=== PATIENT | female | born 1960 | race Caucasian/White ===

== ENCOUNTER 2023-02-05 16:58 | Emergency (ER) | payer OTHER ==
[2023-02-05 17:38] LABS: ALBUMIN 3.5 GM/DL (3.2-4.5)
[2023-02-05 17:39] LABS: POTASSIUM 3.8 MMOL/L (3.6-5.0)
--- NOTE | 2023-02-05 17:39 | ED General ---
General Chief Complaint: Abdominal/GI Problems Stated Complaint: PARACENTISIS TREATMENT Nursing Triage Note: PT AMB TO RM 5 PT STATES SHE IS IN AREA VISITING AND NEEDS PARACENTISIS. PT IS VISITING FROM [place]. PT STATES LAST TIME DONE APPROX 01/19/23. PT HAS LIVER FAILURE FROM PREVIOUS DRINKING. PT HAS DISTENDED ABD, SOA, PAIN 5/10 Source of Information: Patient Exam Limitations: No Limitations History of Present Illness Date Seen by Provider: Feb 05, 2023 Time Seen by Provider: 17:08 Initial Comments This is 62-year-old woman presents to the emergency room by private vehicle with concerns about worsening abdominal ascites. She has history of liver failure from alcohol use and hepatitis C. The hepatitis C has been treated and she no longer drinks alcohol. She lives at the [facility], [place] area and is visiting her niece who lives in [place]. They tried to arrange paracentesis through a referral but were unable to do so. She normally has paracentesis weekly but has not had a paracentesis since January 19. She reports on her last paracentesis only approximately 1 L was drained. She typically has closer to 10 L drained. She complains of shortness of breath, pain from abdominal distention, and worsening abdominal distention. She rates her pain as 5 or 6 out of 10. She normally uses gabapentin for pain, but that is not currently helping much. She has used oxycodone successfully in the past. She does take diuretics and lactulose routinely. Vital signs are unremarkable at this time. She is not hypoxic and not in respiratory distress. Allergies and Home Medications Allergies Coded Allergies: No Known Drug Allergies (Unverified , 02/05/23) Patient Home Medication List Home Medication List Reviewed: Yes Oxycodone HCl (Oxycodone HCl) 5 Mg Tablet, 5 MG PO Q6H PRN for PAIN-MODERATE TO SEVERE Prescribed by: TESSA SOUTH on 02/05/23 181 Review of Systems Review of Systems Constitutional: no symptoms reported EENTM: no symptoms reported Respiratory: see HPI Cardiovascular: no symptoms reported Gastrointestinal: see HPI Genitourinary: no symptoms reported : No Musculoskeletal: no symptoms reported Skin: no symptoms reported Psychiatric/Neurological: No Symptoms Reported Hematologic/Lymphatic: No Symptoms Reported Immunological/Allergic: no symptoms reported Past [id number]-Jihrqa-Ixblxd Hx Patient Social History Tobacco Use?: Yes Tobacco type used: Cigarettes Smoking Status: Current Everyday Smoker Substance use?: No Alcohol Use?: No (Prior alcohol use but none currently) Pt feels they are or have been: No Past Medical History Surgery/Hospitalization HX: PARACENTISIS, ENDOMETRIOSIS, L TUBE AND L OVARY REMOVED, LIVER FAILURE Surgeries: Yes (Left salpingectomy and oophorectomy) Abdominal (Routine paracentesis) Respiratory: No Cardiac: No Neurological: No : No Reproductive Disorders: Yes Female Reproductive Disorders: Endometriosis Genitourinary: No Gastrointestinal: Yes Liver Disease/Jaundice (Chronic liver failure with ascites related to treated hepatitis C and alcohol use), Hepatitis (History of hepatitis C, treated) Musculoskeletal: No Endocrine: No HEENT: No Cancer: No Psychosocial: No Integumentary: No Physical Exam Vital Signs Vital Signs - First Documented 02/05/23 17:05 Temp 36.6 Pulse 94 Resp 14 B/P (MAP) 127/67 (87) Pulse Ox 97 Capillary Refill : Less Than 3 Seconds Height, Weight, BMI Height: '" Weight: lbs. oz. kg; BMI Method: General Appearance: No Apparent Distress, WD/WN HEENT: PERRL/EOMI, Normal ENT Inspection Neck: Normal Inspection Respiratory: Lungs Clear, Normal Breath Sounds, No Accessory Muscle Use, No Respiratory Distress Cardiovascular: Regular Rate, Rhythm, No Murmur, Other (Mild to moderate lower extremity edema, equal bilaterally) Gastrointestinal: Normal Bowel Sounds, Soft, Distended, Tenderness (Mild, generalized) Extremity: Pedal Edema (Mild to moderate lower extremity edema, equal bilaterally) Neurologic/Psychiatric: Alert, Oriented x3, No Motor/Sensory Deficits, Normal Mood/Affect Skin: Normal Color, Warm/Dry Progress/Results/Core Measures Suspected Sepsis SIRS Temperature: Pulse: 94 Respiratory Rate: 14 Laboratory Tests 02/05/23 17:20: White Blood Count 8.4 Blood Pressure 127 /67 Mean: 87 Laboratory Tests 02/05/23 17:20: Creatinine 1.11, INR Comment 1.2, Platelet Count 130, Total Bilirubin 3.0H Results/Orders Lab Results Laboratory Tests Test 02/05/23 17:20 02/05/23 17:30 Range/Units White Blood Count 8.4 4.3-11.0 10^3/uL Red Blood Count 3.69 L 3.80-5.11 10^6/uL Hemoglobin 12.0 11.5-16.0 g/dL Hematocrit 36 35-52 % Mean Corpuscular Volume 96 80-99 fL Mean Corpuscular Hemoglobin 33 25-34 pg Mean Corpuscular Hemoglobin Concent 34 32-36 g/dL Red Cell Distribution Width 15.9 H 10.0-14.5 % Platelet Count 130 130-400 10^3/uL Mean Platelet Volume 10.0 9.0-12.2 fL Immature Granulocyte % (Auto) 1 % Neutrophils (%) (Auto) 64 42-75 % Lymphocytes (%) (Auto) 19 12-44 % Monocytes (%) (Auto) 12 0-12 % Eosinophils (%) (Auto) 3 0-10 % Basophils (%) (Auto) 1 0-10 % Neutrophils # (Auto) 5.4 1.8-7.8 10^3/uL Lymphocytes # (Auto) 1.6 1.0-4.0 10^3/uL Monocytes # (Auto) 1.0 0.0-1.0 10^3/uL Eosinophils # (Auto) 0.3 0.0-0.3 10^3/uL Basophils # (Auto) 0.1 0.0-0.1 10^3/uL Immature Granulocyte # (Auto) 0.0 0.0-0.1 10^3/uL Percent Immature Platelet Fraction 3.4 0.0-7.6 % Prothrombin Time 15.5 H 12.2-14.7 SEC INR Comment 1.2 0.8-1.4 Activated Partial Thromboplast Time 32 24-35 SEC Sodium Level 136 135-145 MMOL/L Potassium Level 3.8 3.6-5.0 MMOL/L Chloride Level 100 98-107 MMOL/L Carbon Dioxide Level 23 21-32 MMOL/L Anion Gap 13 5-14 MMOL/L Blood Urea Nitrogen 19 H 7-18 MG/DL Creatinine 1.11 0.60-1.30 MG/DL Estimat Glomerular Filtration Rate 56 BUN/Creatinine Ratio 17 Glucose Level 119 H 70-105 MG/DL Calcium Level 9.7 8.5-10.1 MG/DL Corrected Calcium 10.1 8.5-10.1 MG/DL Total Bilirubin 3.0 H 0.1-1.0 MG/DL Aspartate Amino Transf (AST/SGOT) 33 5-34 U/L Alanine Aminotransferase (ALT/SGPT) 19 0-55 U/L Alkaline Phosphatase 127 40-136 U/L Total Protein 6.1 L 6.4-8.2 GM/DL Albumin 3.5 3.2-4.5 GM/DL Urine Color YELLOW Urine Clarity CLEAR Urine pH 5.0 5-9 Urine Specific [place] 1.020 1.016-1.022 Urine Protein NEGATIVE NEGATIVE Urine Glucose (UA) NEGATIVE NEGATIVE Urine Ketones NEGATIVE NEGATIVE Urine Nitrite NEGATIVE NEGATIVE Urine Bilirubin NEGATIVE NEGATIVE Urine Urobilinogen 0.2 < = 1.0 MG/DL Urine Leukocyte Esterase NEGATIVE NEGATIVE Urine RBC (Auto) NEGATIVE NEGATIVE Urine RBC NONE /HPF Urine WBC NONE /HPF Urine Squamous Epithelial Cells 2-5 /HPF Urine Crystals NONE /LPF Urine Bacteria FEW H /HPF Urine Casts NONE /LPF Urine Mucus NEGATIVE /LPF Urine Culture Indicated NO My Orders Orders - TESSA MYERS MD Protime With Inr (02/05/23 17:25) Partial Thromboplastin Time (02/05/23 17:25) Ed Iv/Invasive Line Start (02/05/23 17:25) Oxycodone Immediate Rel Tablet (Oxycodon (02/05/23 17:45) Potassium Chloride (Tablet) (Potassium C (02/05/23 18:15) Medications Given in ED Current Medications Medications Dose Ordered Sig/Meredith Route Start Time Stop Time Status Last Admin Dose Admin Oxycodone HCl 5 mg ONCE ONCE PO 02/05/23 17:45 02/05/23 17:46 DC 02/05/23 18:03 5 MG Vital Signs/I&O 02/05/23 17:05 Temp 36.6 Pulse 94 Resp 14 B/P (MAP) 127/67 (87) Pulse Ox 97 Capillary Refill : Less Than 3 Seconds Blood Pressure Mean: 87 Progress Note : Progress Note Patient was interviewed and examined. Labs were obtained, reviewed, and interpreted by me. CBC was unremarkable with a normal platelets of 130. INR was normal at 1.2. CMP was unremarkable for any clinically relevant abnormalities. Urinalysis was also unremarkable. Patient inquired about what she could do to help her symptoms while awaiting paracentesis. I suggested taking an extra dose of Lasix 40 mg this evening when she returns home. Her potassium was 3.5 today. I provided oral potassium 10 mEq now to accommodate for the extra dose of Lasix when she returns home. I spoke with Dr. Pro, general surgeon on-call, who would like to see her in the clinic at 0900 tomorrow morning to arrange for paracentesis. Patient did not require emergent paracentesis in the emergency room at this time. She is stable for discharge and outpatient paracentesis tomorrow. Patient would like to be sure that her paracentesis is performed before she travels back to [place] on , 08 February. She was provided with a dose of oxycodone 5 mg to help manage the pain and a small quantity of oxycodone was prescribed to help her get through until she returns home. See discharge instructions for further discussion. Departure Impression Primary Impression: Abdominal ascites Qualified Codes: R18.8 - Other ascites Additional Impression: Liver failure Qualified Codes: K72.10 - Chronic hepatic failure without coma Disposition: HOME, SELF-CARE Condition: Stable Departure-Patient Inst. Decision time for Depature: 18:05 Referrals: MARCELO PROLOCAL PHYSICIAN (PCP) Primary Care Physician Patient Instructions: Abdominal Paracentesis, Fluid in the belly (ascites), Liver Failure Diet Add. Discharge Instructions: To help reduce fluid accumulation while you are awaiting paracentesis you may take an extra Lasix (furosemide) 40 mg by mouth tonight. You may use oxycodone as prescribed for pain. Do not drive or operate machinery while on oxycodone as it may cause drowsiness. Present to general surgery office (Dr. Pro's office) at 9:00 tomorrow morning, February 06. Per Dr. Pro's instructions, he will provide you consultation and arrange for paracentesis at the outpatient surgery center. His contact information is below. You may call the office at 8:00 in the morning to confirm the appointment and provide any other information they may require. Return to care if you have any worsening of symptoms despite following these instructions. All discharge instructions reviewed with patient and/or family. Voiced understanding. Scripts Oxycodone HCl (Oxycodone HCl) 5 Mg Tablet 5 MG PO Q6H PRN for PAIN-MODERATE TO SEVERE, #10 TAB Prov: TESSA MYERS MD 02/05/23 Copy Copies To 1: MARCELO PRO JOSHUA T MD Feb 05, 2023 17:39
[2023-02-05 17:40] LABS: CALCIUM 9.7 MG/DL (8.5-10.1)
[2023-02-05 17:41] LABS: TOTAL PROTEIN 6.1 GM/DL (6.4-8.2)
[2023-02-05 17:43] LABS: BASOPHILS # (AUTO) 0.1 10^3/uL (0.0-0.1); BASOPHILS % (AUTO) 1 % (0-10); EOSINOPHILS # (AUTO) 0.3 10^3/uL (0.0-0.3); EOSINOPHILS % (AUTO) 3 % (0-10); HEMATOCRIT 36 % (35-52); LYMPHOCYTES # (AUTO) 1.6 10^3/uL (1.0-4.0); LYMPHOCYTES % (AUTO) 19 % (12-44); MEAN CORPUSCULAR HEMOGLOBIN 33 pg (25-34); MEAN CORPUSCULAR HGB CONC 34 g/dL (32-36); MEAN CORPUSCULAR VOLUME 96 fL (80-99); MONOCYTES % (AUTO) 12 % (0-12); NEUTROPHILS # (AUTO) 5.4 10^3/uL (1.8-7.8); NEUTROPHILS % (AUTO) 64 % (42-75); PLATELET COUNT 130 10^3/uL (130-400); WHITE BLOOD COUNT 8.4 10^3/uL (4.3-11.0)
[2023-02-05 17:44] LABS: CREATININE SERUM 1.11 MG/DL (0.60-1.30)
[2023-02-05] MEDS ORDERED: oxyCODONE IMMEDIATE RELEASE 5 MG TABLET PO ONE (17:45)
[2023-02-05 17:46] LABS: INR 1.2 (0.8-1.4); PROTHROMBIN TIME PATIENT 15.5 SEC (12.2-14.7)
[2023-02-05 18:01] LABS: BACTERIA,URINE FEW /HPF; BILIRUBIN,URINE NEGATIVE (NEGATIVE); CLARITY,URINE CLEAR; COLOR,URINE YELLOW; GLUCOSE, URINE (UA) NEGATIVE (NEGATIVE); KETONES,URINE NEGATIVE (NEGATIVE); LEUKOCYTE ESTERASE ,URINE NEGATIVE (NEGATIVE); NITRITE,URINE NEGATIVE (NEGATIVE); PROTEIN,URINE NEGATIVE (NEGATIVE)
[2023-02-05] MEDS ORDERED: OXYC5TAB PO (18:09)
[2023-02-05] MEDS ORDERED: POTASSIUM CHLORIDE 10 MEQ TABLET PO ONE (18:15)
[2023-02-05 18:23] VITALS: BP 112/74
== END 2023-02-05 18:24 | disposition home or self-care (01) ==
LOC: ER 17:04
DX: K72.90 Hepatic failure, unspecified without coma (principal); R18.8 Other ascites; E87.6 Hypokalemia; F17.210 Nicotine dependence, cigarettes, uncomplicated; Z86.19 Personal history of other infectious and parasitic diseases
CPT/HCPCS: 36415; 80053; 81000; 85025; 85610; 85730

== ENCOUNTER → 2023-02-06 | Day surgery (SDC) | payer OTHER ==
[~2023-02-06] VITALS: Ht 162 cm; Wt 94.5 kg
[~2023-02-06] MED LIST: ALBUMIN 25% 25 GM/100 ML 100 ML IV ONE; LIDOCAINE 1% INJ 20 ML VIAL ONE; OXYC5TAB PO
[2023-02-06 10:46] VITALS: BP 113/51
--- NOTE | 2023-02-06 14:47 | Progress Note-Post Operative ---
Post-Operative Progess Note Surgeon (s)/Wash Oil Pump Operator (s) Surgeon MARCELO PRO DO Wash Oil Pump Operator: none Pre-Operative Diagnosis Ascites Post-Operative Diagnosis same Procedure & Operative Findings Date of Procedure 02/06/23 Procedure Performed/Findings Procedural Note: Paracentesis The patient was in the PACU in her bed. I used the US and found the largest pocket of fluid. The abdomen was then prepped and draped and timeout was performed. Local anesthetic was infiltrated and #11 blade scalpel was used to make a small skin incision. [id number]-[id number] needle and catheter were then advanced until a yellowish straw-colored fluid was withdrawn. The catheter was advanced and the needle was removed. Plan was to remove as much fluid as we can. Once done draining, the catheter will be removed and sterile bandage applied. The nurse called and they were able to get 5950ml of fluid. Pt will get albumin per protocol. The patient tolerated procedure well without any complications. Anesthesia Type local lidocaine Estimated Blood Loss Estimated blood loss (mL): none Specimens/Packing Specimens Removed ascitic fluid MARCELO PRO DO Feb 06, 2023 14:47
== END ==
LOC: SDC 10:20
PROVIDERS: ATTEND Surgery
DX: K70.31 Alcoholic cirrhosis of liver with ascites (principal); F17.210 Nicotine dependence, cigarettes, uncomplicated
CPT/HCPCS: 49083; 96365; 96366